=== PATIENT | female | born 1975 | race Caucasian/White ===

== ENCOUNTER 2016-12-18 09:58 | Emergency (ER) | payer OTHER ==
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
[2016-12-18] MEDS: KETOROLAC TROMETHAMINE 60 MG/2 ML VIAL IM ONE (11:30)
[2016-12-18 11:41] VITALS: BP 114/64
--- NOTE | 2016-12-18 15:18 | Diagnostic Imaging Report ---
ANTOINE HERRERA (DEREJE) - ER [facility] [address] [address] Report Submission Date: Dec 18, 2016 11:01:40 AM CDT Patient Study Name: MAX MI I Date: Dec 18, 2016 10:24:35 AM CDT Modality Type: CR Gender: F Description: UPPER EXTREMITY : 71 Institution: [facility] Physician: ANTOINE HERRERA (DEREJE) - ER Examination: Plain film wrist History: Wrist discomfort Comparison exams: None available Findings: 3 views the wrist demonstrates intercarpal fixation hardware.. No fracture. No dislocation. No soft tissue abnormality. Impression: Carpal fixation hardware. No acute osseous abnormality Electronically signed on Dec 18, 2016 11:01:40 AM CDT by: Brian GAMA
--- NOTE | 2016-12-18 15:18 | Diagnostic Imaging Report ---
ANTOINE HERRERA (DEREJE) - ER [facility] [address] [facility].[address] [address] Report Submission Date: Dec 18, 2016 11:03:24 AM CDT Patient Study Name: MAX MI I Date: Dec 18, 2016 10:18:58 AM CDT Modality Type: CR Gender: F Description: UPPER EXTREMITY : 71 Institution: [facility] Physician: ANTOINE HERRERA (DEREJE) - ER Examination: Plain film hand History: Hand discomfort Comparison exams: None available Findings: 3 views the hand demonstrates intercarpal fixation hardware.. No fracture. No dislocation. No soft tissue abnormality. Ring on 4th digit. Impression: Carpal fixation hardware. No acute osseous abnormality Electronically signed on Dec 18, 2016 11:03:24 AM CDT by: Brian GAMA
== END 2016-12-18 11:38 | disposition home or self-care (01) ==
LOC: ED 09:58
DX: S63.92XA Sprain of unspecified part of left wrist and hand, initial encounter (principal); X58.XXXA Exposure to other specified factors, initial encounter; Y93.9 Activity, unspecified; Y99.9 Unspecified external cause status
CPT/HCPCS: 73110; 73130; J1885; 96372; 99283

== ENCOUNTER 2016-12-30 21:43 | Emergency (ER) | payer OTHER ==
--- NOTE | 2016-12-30 21:58 | ED Physician Documentation ---
Skin Rash - HISTORIAN Historian: patient - HPI Chief Complaint: Skin Rash Onset: days ago ( 2 days) Timing: still present Duration: worse Location: generalized Quality: itchy Identified Cause?: No Further Comments: yes (Started on trunk area, no previous problems) - ROS CONST: denies: fever - PAST HX Past History: diabetes Type 2, other (COPD) Other History: none, other (asthma) Surgeries/Procedures: Yes (c section, dental extraction) Immunizations: referred to PCP Allergies/Adverse Reactions: Allergies Allergy/AdvReac Type Severity Reaction Status Date / Time Penicillins Allergy Verified 12/30/16 21:53 Home Medications: Ambulatory Orders Medication Instructions Recorded Albuterol Sulfate [ProAir 1 puff INH DAILY 12/18/16 RespiClick] Carisoprodol [Soma] 250 mg PO DAILY 12/18/16 Loratadine [Claritin] 10 mg PO DAILY 12/18/16 Carisoprodol [Soma] 350 mg PO BID 12/30/16 Fluoxetine HCl [Prozac] 20 mg PO QDAY 12/30/16 Oxycodone HCl/Acetaminophen 1 each PO Q4H PRN 12/30/16 [Percocet 10/325] Pregabalin [Lyrica] 100 mg PO QDAY 12/30/16 - SOCIAL HX Smoking History: non-smoker Alcohol Use: none Drug Use: none - FAMILY HX Family History: asthma, other (diabetes) - VITAL SIGNS Vital Signs: Vital Signs Temp Pulse Resp BP Pulse Ox 97.7 F 95 H 16 122/88 95 12/30/16 21:50 12/30/16 21:50 12/30/16 21:50 12/30/16 21:50 12/30/16 21:50 - REVIEWED ASSESSMENTS Nursing Assessment Reviewed: Yes Vitals Reviewed: Yes ED Results Lab/Radiology - Orders Orders: ED Orders Category Date Time Status Dexamethasone Sod Phosphate [Decadron] Med 12/30/16 22:09 Discontinued 4 mg IM NOW ONE methylPREDNISolone SOD SUCC [Solu-MEDROL] Med 12/30/16 22:08 Discontinued 80 mg IM NOW ONE Skin Rash Physical Exam - EXAM General Appearance: no acute distress Skin: warm,dry Location: generalized Character: symmetric, patchy, linear (mild areas), urticarial (?). No: vesicular Symptoms: No: warmth, tenderness, swelling, lymphangitis, induration EENT: lips nml, gums nml, pharynx nml. No: pharyngeal erythema Neck: No: lymphadenopathy Respiratory: no resp distress, chest non-tender, breath sounds normal. No: wheezes, rales, rhonchi CVS: reg. rate & rhythm, heart sounds nml, murmur Neuro/Psych: mood/affect nml Discharge Clincal Impression: Allergic dermatitis Referrals: Primary Doctor,No [Primary Care Provider] - 2 Days Additional Instructions: Continue to think about possible precipitating substances. Take some Benadryl and or Zantac (ranitidine)/Pepcid. Avoid hot water, try to keep the skin from getting dry. If you develop some breathing problems or symptom do not improve to follow-up with primary care provider. Home Medications: Ambulatory Orders Albuterol Sulfate [ProAir RespiClick] 1 puff INH DAILY 12/18/16 Carisoprodol [Soma] 250 mg PO DAILY 12/18/16 Loratadine [Claritin] 10 mg PO DAILY 12/18/16 Carisoprodol [Soma] 350 mg PO BID 12/30/16 Fluoxetine HCl [Prozac] 20 mg PO QDAY 12/30/16 Oxycodone HCl/Acetaminophen [Percocet 10/325] 1 each PO Q4H PRN 12/30/16 Pregabalin [Lyrica] 100 mg PO QDAY 12/30/16 Condition: Stable Decision to Admit: NO Date of Decison to Admit: 12/30/16 Decision Time: 22:11
[2016-12-30] MEDS ORDERED: methylPREDNISolone SOD SUCC 40 MG/ML VIAL IM ONE (22:08)
[2016-12-30] MEDS ORDERED: DEXAMETHASONE SOD PHOS 4 MG/ML VIAL IM ONE (22:09)
[2016-12-30 22:39] VITALS: BP 122/86
== END 2016-12-30 22:30 ==
LOC: ED 21:43
DX: L23.9 Allergic contact dermatitis, unspecified cause (principal)
CPT/HCPCS: 96372; 99283; J1100; J2920; J1030

== ENCOUNTER 2017-02-27 19:44 | Emergency (ER) | payer OTHER ==
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
[2017-02-27] MEDS ORDERED: KETOROLAC TROMETHAMINE 60 MG/2 ML VIAL IM ONE (20:17)
[2017-02-27] MEDS ORDERED: ORPHENADRINE CITRATE 60 MG/2ML IM ONE (20:17)
[2017-02-27 20:59] VITALS: BP 101/58
--- NOTE | 2017-02-27 21:25 | Diagnostic Imaging Report ---
COREY KIRK [facility] [id number] [facility] [address] [address] Report Submission Date: Feb 27, 2017 8:45:24 PM CDT Patient Study Name: MAX MI I Date: Feb 27, 2017 8:26:10 PM CDT Modality Type: CR Gender: F Description: SPINE : 71 Institution: [facility] Physician: COREY KIRK Sacrum and coccyx, 3 images History: Fall, pain Findings: There is no fracture or abnormal bone destruction. Impression: Normal. Electronically signed on Feb 27, 2017 8:45:24 PM CDT by: Nael GAMA
== END 2017-02-27 20:58 | disposition home or self-care (01) ==
LOC: ED 19:44
DX: S30.0XXA Contusion of lower back and pelvis, initial encounter (principal); W19.XXXA Unspecified fall, initial encounter; Y93.9 Activity, unspecified; Y99.9 Unspecified external cause status
CPT/HCPCS: 72220; J1885; J2360; 96372; 99283